=== PATIENT | female | born 1955 | race Caucasian/White ===

== ENCOUNTER → 2020-03-27 15:05 | Outpatient (CLI) | payer OTHER, SELFPAY ==
--- NOTE | ~2020-03-27 | MM_ITS ---
EXAMINATION: MM screening cait BI w martha HISTORY: Screening mammogram TECHNIQUE: Craniocaudal and mediolateral oblique 3-D tomosynthesis images were obtained and synthetic 2-D images were generated. CAD analysis was submitted and interpreted. COMPARISON: 6 01/24/2019, 01/06/2018, 12/09/2016 bilateral digital screening mammogram examinations BREAST PARENCHYMAL COMPOSITION: There are scattered areas of fibroglandular density. FINDINGS: Stable and benign calcifications are again noted primarily in the upper outer quadrant of t he right breast. There is no evidence of suspicious mass, calcification, or architectural distortion to suggest malignancy in either breast. There has been no suspicious interval change. IMPRESSION: 1. No mammographic evidence of malignancy. 2. Recommend routine screening mammography in one year. BI-RADS Category 2: Benign finding(s). Reviewed, dictated and finalized at location B. [facility]
== END ==
PROVIDERS: Visit Provider Nurse Practitioner Obstetrics & Gynecology
DX: Z12.31 Encounter for screening mammogram for malignant neoplasm of breast (principal)
CPT/HCPCS: 77063; 77067

== ENCOUNTER → 2020-11-09 10:09 | Outpatient (CLI) | payer OTHER, SELFPAY ==
--- NOTE | ~2020-11-09 | XR_ITS ---
EXAMINATION: XR femur LT min 2V INDICATION: Left hip pain TECHNIQUE: Two views of the left femur are obtained on four radiographs. COMPARISON: None available FINDINGS: Bone alignment is normal. There is an intramedullary angelique of the femur traversing a healed f racture of the proximal shaft. There is heterotopic ossification overlying the proximal aspect of the angelique. No acute fracture is identified. Calcified atherosclerosis is noted. IMPRESSION: 1. Intramedullary angelique traversing a healed fracture of the left femur without acute osseous abnormalit y identified. Reviewed, dictated and finalized at location A. IMPRESSION: 1. Intramedullary angelique traversing a healed fracture of the left femur without ac juanita osseous abnormality identified.
== END ==
PROVIDERS: PCP Family Medicine Adolescent Medicine; Visit Provider Family Medicine Adolescent Medicine
DX: M25.552 Pain in left hip (principal)
CPT/HCPCS: 73552

== ENCOUNTER → 2020-12-03 12:18 | Outpatient (CLI) | payer OTHER, SELFPAY ==
--- NOTE | ~2020-12-03 | XR_ITS ---
XR lumbar spine 2-3V DATE: 12/03/2020 13:50 INDICATION: Low back pain TECHNIQUE: AP, lateral, coned lateral lumbosacral views COMPARISON: None FINDINGS: Diffuse osteopenia. Mild dextroscoliosis of the lumbar spine. There is mild loss of height and anterior wedging of T11, likely due to old compression fracture. Mild degenerative disc disease of the lumbar spine. No fracture or bone destruction is detected. The included lower thoracic and lumbar pedicles are intact. The sacroiliac joints are normal. Intramedullary device left femur. Heterotopic ossification at the left hip. IMPRESSION: Diffuse osteopenia Mild old compression fracture deformity of T11 Mild dextroscoliosis Reviewed, dictated and finalized at location A.
== END ==
PROVIDERS: PCP Family Medicine Adolescent Medicine; Visit Provider Physician Assistant
DX: M85.88 Other specified disorders of bone density and structure, other site (principal)
CPT/HCPCS: 72100

== ENCOUNTER → 2021-03-01 08:06 | Outpatient (CLI) | payer OTHER, SELFPAY ==
--- NOTE | ~2021-03-01 | CT_ITS ---
EXAMINATION: CT diagnostic chest wo con EXAM DATE: 03/01/2021 08:22 INDICATION: Persistent chest pain below left breast . TECHNIQUE: Spiral CT of the chest without contrast. Axial, coronal and sagittal images of the chest were reviewed. Coronal maximum intensity pixel images of chest reviewed. The dose-length product ( DLP) for this examination was 125.39 mGy-cm. The exposure was tailored according to patient size (au to mA exposure control), and iterative reconstruction (ASIR) was used as additional dose reduction te chnique. There is no prior study for comparison. FINDINGS: There is suspicion of mid esophageal wall thickening, could be phasic, esophagitis or cance r. The lungs are clear. Mild emphysema. There are no pleural or pericardial effusions. Tracheobronc hial tree is patent. There is no mediastinal, hilar or axillary lymphadenopathy. There is no pneu mothorax. Heart normal in size. There is mild coronary arterial calcification, arterial sclerosis . Upper abdomen is unremarkable. There is thoracic spondylosis without osteoblastic or osteolytic lesions identified. There are left 4th, 5th and 6th rib fractures anterolaterally, minimal displacement at the 6th rib. T hese appear subacute, but if patient has acute pain in this location as reported, could have an acute component to the 6th fracture. IMPRESSION: 1. Mid esophageal wall thickening; recommend clinical correlation and further evaluation with esopha gram or endoscopy. 2. Left 6 subacute or acute on subacute fracture anterolaterally. Subacute appearing left 5th, 4th r ib fractures anterolaterally. 3. Mild emphysema. Reviewed, dictated and finalized at location B. [facility]IL[facility] IMPRESSION: 1. Mid esophageal wall thickening; recommend clinical correlation and further evaluation with esophagram or endoscopy. 2. Left 6 subacute or acute on subacute fracture anterolaterally. Subacute doreen earing left 5th, 4th rib fractures anterolaterally. 3. Mild emphysema.
== END ==
PROVIDERS: PCP Family Medicine Adolescent Medicine; Visit Provider Family Medicine Adolescent Medicine
DX: R07.9 Chest pain, unspecified (principal); R93.3 Abnormal findings on diagnostic imaging of other parts of digestive tract; S22.42XA Multiple fractures of ribs, left side, initial encounter for closed fracture; J43.9 Emphysema, unspecified
CPT/HCPCS: 71250

== ENCOUNTER 2021-04-10 00:53 | Day surgery (SDC) | payer OTHER, SELFPAY ==
[2021-03-27 11:54] VITALS: BMI 21.7
[2021-04-10 06:44] VITALS: BP 149/83; PULSE 94; RESP 16; TEMP 36.4; O2SAT 100
[2021-04-10] MEDS: LACTATED RINGERS 1,000 ML 150 ML IV CONT (06:48)
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
[2021-04-10 08:34] VITALS: BP 138/77; PULSE 93; RESP 23; O2SAT 100
[2021-04-10 08:44] VITALS: BP 135/85; PULSE 88; RESP 20; O2SAT 97
[2021-04-10 08:54] VITALS: BP 157/87; PULSE 81; RESP 26; O2SAT 100
--- NOTE | 2021-04-10 10:06 | SUR.PHASEII ---
Spoke with Dr. Gilmore's office, order was recieved for a referral to oncology from Dr. Gilmore. Office staff state they will send information to Dr. Vera's office.
== END 2021-04-10 09:43 | disposition home or self-care (01) ==
PROVIDERS: PCP Family Medicine Adolescent Medicine; Visit Provider Internal Medicine Gastroenterology
PROC: 0DJ08ZZ Inspection of Upper Intestinal Tract, Via Natural or Artificial Opening Endoscopic (ICD-10-PCS; CPT 43235; principal; 2021-04-10 08:00)
DX: K22.70 Barrett's esophagus without dysplasia (principal); K22.10 Ulcer of esophagus without bleeding; K21.00 Gastro-esophageal reflux disease with esophagitis, without bleeding; K44.9 Diaphragmatic hernia without obstruction or gangrene; I10 Essential (primary) hypertension
CPT/HCPCS: 43239; 88305; J2704; J7120

== ENCOUNTER → 2021-05-20 15:41 | Outpatient (CLI) | payer OTHER, SELFPAY ==
--- NOTE | ~2021-05-20 | MM_ITS ---
EXAMINATION: MM screening cait BI w martha HISTORY: Screening TECHNIQUE: Craniocaudal and mediolateral oblique 3-D tomosynthesis images were obtained and synthetic 2-D images were generated. CAD analysis was submitted and interpreted. COMPARISON: Comparison to multiple prior studies sequentially, with oldest reviewed study dated 12/07. BREAST PARENCHYMAL COMPOSITION: Breast composed of scattered areas of fibroglandular density. FINDINGS: Stable benign-appearing right breast calcifications. There is no evidence of suspicious mas s, calcification, or architectural distortion to suggest malignancy in either breast. There has been no suspicious interval change. IMPRESSION: 1. No mammographic evidence of malignancy. 2. Recommend routine screening mammography in one year. BI-RADS Category 2: Benign finding(s). Reviewed, dictated and finalized at location A. [facility]
== END ==
PROVIDERS: Visit Provider Nurse Practitioner Obstetrics & Gynecology
DX: Z12.31 Encounter for screening mammogram for malignant neoplasm of breast (principal)
CPT/HCPCS: 77063; 77067

== ENCOUNTER 2021-05-21 00:17 | Day surgery (SDC) | payer OTHER, SELFPAY ==
[2021-05-08 10:33] VITALS: BMI 22.1
[2021-05-21 07:21] VITALS: BP 147/86; PULSE 90; RESP 20; TEMP 36.1; O2SAT 100
[2021-05-21] MEDS: LACTATED RINGERS 1,000 ML 150 ML IV CONT (07:33)
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
[2021-05-21 08:37] VITALS: BP 130/75; PULSE 84; RESP 20; O2SAT 100
[2021-05-21 08:47] VITALS: BP 133/70; PULSE 72; RESP 16; O2SAT 100
[2021-05-21 08:57] VITALS: BP 152/75; PULSE 76; RESP 16; O2SAT 100
== END 2021-05-21 09:07 | disposition home or self-care (01) ==
PROVIDERS: PCP Family Medicine Adolescent Medicine; Visit Provider Internal Medicine Gastroenterology
PROC: 0DJ08ZZ Inspection of Upper Intestinal Tract, Via Natural or Artificial Opening Endoscopic (ICD-10-PCS; CPT 43235; principal; 2021-05-21 08:30)
DX: K21.00 Gastro-esophageal reflux disease with esophagitis, without bleeding (principal); K44.9 Diaphragmatic hernia without obstruction or gangrene; K22.70 Barrett's esophagus without dysplasia; I10 Essential (primary) hypertension
CPT/HCPCS: 43239; 88305; J2704; J7120

== ENCOUNTER → 2021-05-23 12:43 | Outpatient (CLI) | payer OTHER, SELFPAY ==
--- NOTE | ~2021-05-23 | DEXA_ITS ---
Bone Density Report Name: ARACELIS SIMEON Age: 65 Sex: Female Ethnicity: White Date of : 1955 Indication: osteopenia; monitoring treatment; parental hip fracture; height loss; prior fracture; postmenopausal Referring Provider: Rianna, Gabriela Xavier Study: Bone densitometry was performed. Exam Date: May 23, 2021 Accession number: [id number] Bone Density: Region BMD T-score Z-score Classification AP Spine (L1, L2, L3) 0.915 -0.9 0.8 Normal Femoral Neck (Right) 0.597 -2.3 -0.8 Osteopenia Total Hip (Right) 0.715 -1.9 -0.7 Osteopenia World Health Organization criteria for BMD impression classify patients as: Normal (T-score at or above -1.0), Osteopenia (T-score between -1.0 and -2.5), or Osteoporosis (T-score at or below -2.5). 10-year Fracture Risk: FRAX not reported because: Prior hip or vertebral fracture Treated for osteoporosis Previous Exams: Region Exam Age BMD T-score BMD Change BMD Change Date g/cm2 vs Baseline vs Previous AP Spine(L1, L2, L3) 05/23/2021 65 0.915 -0.9 0.106* -0.018 01/24/2019 63 0.933 -0.8 0.123* 0.028* 12/26/2016 61 0.905 -1.0 0.096* 0.034* 12/02/2014 59 0.871 -1.3 0.061* 0.007 11/09/2012 57 0.864 -1.4 0.054* 0.034* 10/29/2010 55 0.830 -1.7 0.020 -0.024* 05/05/2008 52 0.854 -1.5 0.044* 0.044* 05/03/2007 51 0.810 -1.9 Total Hip(Right) 05/23/2021 65 0.715 -1.9 0.043* 0.012 01/24/2019 63 0.703 -2.0 0.031* 0.001 12/26/2016 61 0.701 -2.0 0.030* -0.025 12/02/2014 59 0.726 -1.8 0.055* 0.039* 11/09/2012 57 0.687 -2.1 0.015 0.022 10/29/2010 55 0.664 -2.3 -0.007 -0.043* 05/05/2008 52 0.708 -1.9 0.036* 0.036* 05/03/2007 51 0.671 -2.2 *Denotes significance at 95% confidence level, LSC for AP Spine = 0.022 g/cm2, LSC for Total Hip = 0.027 g/cm2 Clinical Information Provided by Patient: Have had a previous hip or vertebral fracture Has had a low trauma fracture Parent has had a hip fracture Is being treated for osteoporosis Has used the following medications: Actonel (i.e. risedronate), Evista (i.e. raloxifene), Vitamin D, MTV Patient maximum height was 62.0 Menopause Age: 49 No regular weight bearing exercise Drinks caffeinated beverages Onset of menses at age 17 Number of children 2
== END ==
PROVIDERS: PCP Family Medicine Adolescent Medicine; Visit Provider Nurse Practitioner Obstetrics & Gynecology
DX: Z78.0 Asymptomatic menopausal state (principal); M85.89 Other specified disorders of bone density and structure, multiple sites
CPT/HCPCS: 77080

== ENCOUNTER → 2021-11-04 10:40 | Outpatient (CLI) | payer OTHER, SELFPAY ==
--- NOTE | ~2021-11-04 | XR_ITS ---
XR knee LT 3V 11/04/2021 10:52 Indication: Knee pain Procedure: 3 views left knee Comparison: 11/09/2020 Findings: Mild patellofemoral compartment osteoarthritis. There is an intramedullary angelique partially vi sualized in the distal femur. There is mild degenerative change of the medial compartment. No acute f racture or traumatic malalignment. No significant joint effusion. Impression: 1: Mild osteoarthritis of the left knee. Reviewed, dictated and finalized at location A. Impression: 1: Mild osteoarthritis of the left knee.
== END ==
PROVIDERS: PCP Family Medicine Adolescent Medicine; Visit Provider Family Medicine Adolescent Medicine
DX: M25.562 Pain in left knee (principal); M17.12 Unilateral primary osteoarthritis, left knee
CPT/HCPCS: 73562

== ENCOUNTER → 2022-09-04 10:47 | Outpatient (CLI) | payer OTHER, SELFPAY ==
--- NOTE | ~2022-09-04 | MM_ITS ---
EXAMINATION: MM screening cait BI w martha HISTORY: Screening mammogram, family history of breast cancer in her sister. TECHNIQUE: Craniocaudal and mediolateral oblique 3-D tomosynthesis images were obtained and synthetic 2-D images were generated. CAD analysis was submitted and interpreted. COMPARISON: 05/20/2021, 03/27/2020, 01/14/2019 BREAST PARENCHYMAL COMPOSITION: There are scattered areas of fibroglandular density. FINDINGS: Scattered benign-appearing calcifications are present. No suspicious mass, calcification, o r architectural distortion are identified in either breast to suggest malignancy. There has been no s uspicious interval change. IMPRESSION: 1. No mammographic evidence of malignancy. 2. Recommend routine screening mammography in one year. BI-RADS Category 2: Benign finding(s). Reviewed, dictated and finalized at location A.
== END ==
PROVIDERS: PCP Family Medicine Adolescent Medicine; Visit Provider Nurse Practitioner Obstetrics & Gynecology
DX: Z12.31 Encounter for screening mammogram for malignant neoplasm of breast (principal)
CPT/HCPCS: 77063; 77067

== ENCOUNTER 2023-09-23 07:00 | Outpatient (NON) | payer OTHER, SELFPAY | END 2023-09-23 07:01 | disposition home or self-care (01) | PROVIDERS: PCP Family Medicine Adolescent Medicine; Visit Provider Internal Medicine Gastroenterology | DX: K22.70 Barrett's esophagus without dysplasia (principal) | CPT/HCPCS: 88305 ==

== ENCOUNTER 2023-09-23 07:18 | Day surgery (SDC) | payer OTHER, SELFPAY ==
[2023-09-02 07:00] VITALS: BMI 23.3
[2023-09-11 14:57] VITALS: BMI 21.5
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
[2023-09-23 07:56] VITALS: BP 150/73; PULSE 75; RESP 18; TEMP 36.5; O2SAT 100; BMI 21.2
[2023-09-23] MEDS: LACTATED RINGERS 1,000 ML 150 ML IV CONT (08:01)
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
[2023-09-23 09:27] VITALS: BP 127/62; PULSE 75; RESP 16; O2SAT 100
[2023-09-23 09:37] VITALS: BP 102/88; PULSE 88; RESP 18; O2SAT 100
[2023-09-23 09:47] VITALS: BP 136/71; PULSE 74; RESP 16; O2SAT 100
--- NOTE | 2023-09-23 10:21 | WPDANESPN ---
Anes - Prog Note Post-Op Date/Time: 09/23/23 10:21 Cardiovascular status: normal Respiratory status: normal Airway patency: baseline Mental status: baseline Vital Signs: Last Vital Signs Temp 36.5 C 09/23/23 07:56 Pulse 74 09/23/23 09:47 Resp 16 09/23/23 09:47 BP 136/71 09/23/23 09:47 Pulse Ox 100 09/23/23 09:47 O2 Del Method Room Air 09/23/23 09:47 Pain Score (VAS): 0/10 I/O: Intake & Output 09/22/23 09/23/23 09/23/23 23:59 07:59 15:59 Intake Total 350 Balance 350 Patient Feedback: Patient satisfied with anesthetic care.
== END 2023-09-23 10:00 | disposition home or self-care (01) ==
PROVIDERS: PCP Family Medicine Adolescent Medicine; Visit Provider Internal Medicine Gastroenterology
PROC: 0DJ08ZZ Inspection of Upper Intestinal Tract, Via Natural or Artificial Opening Endoscopic (ICD-10-PCS; CPT 43235; principal; 2023-09-23 09:00)
DX: K22.70 Barrett's esophagus without dysplasia (principal); K21.9 Gastro-esophageal reflux disease without esophagitis
CPT/HCPCS: 43239

== ENCOUNTER 2024-01-14 15:25 | Outpatient (CLI) | payer OTHER, SELFPAY ==
--- NOTE | ~2024-01-14 | MM_ITS ---
EXAMINATION: MM screening cait BI w martha HISTORY: Screening TECHNIQUE: Craniocaudal and mediolateral oblique 3-D tomosynthesis images were obtained and synthetic 2-D images were generated. CAD analysis was submitted and interpreted. COMPARISON: Comparison to multiple prior studies sequentially, with oldest reviewed study dated 12/09. BREAST PARENCHYMAL COMPOSITION: Not dense: There are scattered areas of fibroglandular density. FINDINGS: There is no evidence of suspicious mass, calcification, or architectural distortion to sugg est malignancy in either breast. There has been no suspicious interval change. IMPRESSION: 1. No mammographic evidence of malignancy. 2. Recommend routine screening mammography in one year. BI-RADS Category 1: Negative Reviewed, dictated and finalized at location B.
== END 2024-01-14 15:26 | disposition home or self-care (01) ==
PROVIDERS: PCP Family Medicine Adolescent Medicine; Visit Provider Obstetrics & Gynecology
DX: Z12.31 Encounter for screening mammogram for malignant neoplasm of breast (principal)
CPT/HCPCS: 77063; 77067

== ENCOUNTER 2024-07-21 09:10 | Outpatient (CLI) | payer OTHER, SELFPAY ==
--- NOTE | ~2024-07-21 | DEXA_ITS ---
Bone Density Report Name: ARACELIS SIMEON Age: 68 Sex: Female Ethnicity: White Date of : 1955 Indication: postmenopausal; screening for osteoporosis; parental hip fracture; height loss; Referring Provider: IZABELLA, HARPREET [place] Study: Bone densitometry was performed. Exam Date: July 21, 2024 Accession number: [id number] Bone Density: Region BMD T-score Z-score Classification AP Spine(L1-L4) 0.911 -1.2 0.7 Osteopenia Femoral Neck (Right) 0.535 -2.8 -1.2 Osteoporosis Total Hip (Right) 0.709 -1.9 -0.5 Osteopenia World Health Organization criteria for BMD impression classify patients as: Normal (T-score at or above -1.0), Osteopenia (T-score between -1.0 and -2.5), or Osteoporosis (T-score at or below -2.5). 10-year Fracture Risk: FRAX not reported because: Some T-score for Spine Total or Hip Total or Femoral Neck at or below -2.5 Treated for osteoporosis Clinical Information Provided by Patient: Parent has had a hip fracture Is being treated for osteoporosis Has used the following medications: Evista (i.e. raloxifene), Calcium Patient maximum height was 61 Menopause Age: 49 No regular weight bearing exercise Does not regularly consume dairy products Drinks caffeinated beverages Onset of menses at age 16 Number of children 2 Impression: The patient has osteoporosis, based on the Right Femoral Neck T-score. The patient has risk factors, including: parental hip fracture. Discussion: It is important to ask patients whether they are taking their medications and to encourage continued and appropriate compliance with their osteoporosis therapies to reduce fracture risk. It is also important to review their risk factors and encourage appropriate calcium and vitamin D intakes, exercise, fall prevention and other lifestyle measures. Follow-Up: Consider a repeat BMD and Vertebral Fracture Assessment (VFA) exam in 2 years or sooner if medically necessary, to reassess this patient's status. Reported by: JUAN on 07/21/2024 10:07:00 AM. Reviewed, dictated and finalized at location ADonell CALDERON
--- OUTSIDE RECORDS SUMMARY | 2024-07-21 09:26 | XMS_ITS | Continuity of Care Document ---
Author Organization [facility] Address [address] [place] [address] Phone Care Team Providers Care Game Developer Name Role [facility] Unavailable Unavail able Wendy Morales Unavailable Unavailable Advance Directives Directive Yes / No Effective Date File Name No Information Encounters Encounter Description Practice Location Reason(s) For Visit Diagnoses Date Provider Providers Copied on Encounter [facility], [address], [place], [place], [id number], [place] tel:[phone] [facility] No Information [address] [facility] [facility], [facility] [address], [place], [id number] , [place]. tel:[phone] Referring Provider: [place], [address], [address]. tel:[phone] g Provider: Wendy Morales, [address] [place] [address], [place], [address]. tel:[phone] 1900 Family History Family Member Type Diagnosis Age At Onset No Information Payers Payer name Insurance type Covered green party ID Authoriza tion(s) No Information Social History Type Description Quantity Date Captured Comments Sex Female Smoking Status No Information Chief Complaint And Reason For Visit No Information Reason For Referral Reason For Referral No Information History Of Present Illness Encounter Date Complaint History Of Prese nt Illness No Information Functional Status Date Functional Assessmen t No Information Instructions Date Instruction Additional Infor mation No Information Assessments Type Assessment Date No Information Patient Care Teams Name Effective Dates (start - stop) Status Members No Information
--- OUTSIDE RECORDS SUMMARY | 2024-07-21 09:26 | XMS_ITS | Data Portability ---
Author Organization [facility] [place] Address [address] [place] [address] [place] [address] Care Team Providers Care Route Sales Associate Name Role Phone KATHY BAKER Primary Care Provider Assessment Encounter Date Assessment Date Assessment LastModified by Organization Details LastModified Time 02/14/2020 02/14/2020 Annual gynecological exam performed. Patient will come back in a year unless there are new symptoms. [email or web address] Not available 02/14/2020 10:45:14 02/21/2021 02/21/2021 Annual gynecological exam performed. Patient will come back in a year unless there are new symptoms. Not available 02/20/2021 13:32:13 06/16/2022 06/16/2022 Annual gynecological exam performed. Patient will come back in a year unless there are new symptoms. Not available 06/16/2022 09:26:41 02/26/2024 02/26/2024 Annual gynecological exam performed. Patient will come back in a year unless there are new symptoms. [email or web address] Not available 02/22/2024 15:07:48 Plan of Treatment Reminders Order Date Submit Date Provider Last Modified By Organization Details Last Modified Time Details Appointments None recorded. Lab None recorded. Referral None recorded. Procedures None recorded. Surgeries None recorded. Imaging MAMMO, screening, digital, bilateral 2023 [facility], [address], [place], [address], 04:08:36 DEXA, axial skeleton + vertebral fracture assessment 2023 [facility], [address], [place], [address], 5 04:03:05 MAMMO, screening, bilateral 2022 023 [facility], [address], [place], [address], 3 05:01:24 MAMMO, screening, digital, bilateral [email or web address] [place] [address], [address], [place], [address], 2 13:42:19 DEXA, axial skeleton + vertebral fracture assessment 2020 021 [facility], [address], [place], [address], 2 17:34:26 Medication Orders raloxifene 60 mg tablet 2022 023 RYAN [facility], [address] [place] [address], [address], 3 09:47:58 raloxifene 60 mg tablet 2019 020 INTERFACE [facility], [address] [place] [address], [address], 0 11:13:47 risedronat e 150 mg tablet 2019 020 layran [facility], [address] [place] [address], [id number], 2 17:31:33 Patient TargetsNo targets recorded. Patient Instructions Encounter Date Encounter Id Patient Instructions Last Modified By Organization Details Last Modified Time 02/14/2020 [id number] [email or web address] Not available 11:00:12 Reason for Referral None Reported. 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 Atrop hic cell emily dotson. Elect nadeem boo nataliya d by So Otto, CT on 02/28 at 7:12 AM ----- ----- ----- ----- ----- ----- ----- ----- ----- ----- ----- ----- ----- ----- ----- ----- ----- ---- HPV RESUL TS: HPV mRNA E6/E7 : No HPV mRNA Detec jose NOTE: This high risk HPV mRNA assay detec ts fourt een high- risk HPV types (16, 18, 31, 33, 35, 39, 45, 51, 52, 56, 58, 59, 66, 68) witho ut diffe renti ation . COMME NT: Note: This speci men was revie wed by a Cytot echno logis t and/o r Patho logis t (as indic ated in this repor t) after evalu ation using the Thinp rep Imagi ng Syste m. CLINI ROSANNA INFOR MATIO N: Menst rual Statu s: LMP (if appli cable ): Clini rosanna Histo ry/Pr eviou s Pap: Type of Neopl zen (if appli cable ): Signi fican t Clini rosanna Findi ngs: Other Histo ry: Hormo kane (if appli cable ): PAP EDUCA MORALES L NOTE: The Pap Test is a scree verónica test with an inher ent false negat etienne rate. Liqui d-bas e sampl ing may decre ase, but will not elimi carina, false negat etienne resul ts. A negat etienne resul t does not precl ude the prese nce and/o r devel opmen t of disea se, since the prese nce of abnor mal cells in the sampl e depen ds on the locat ion of the lesio n and sampl ing techn ique. Carrol nued regul ar scree verónica is the best metho d of cance r preve ntion . If repor jose cytol ogic findi ng do not corre late with physi rosanna and/o r histo rical findi ngs, furth er inves tigat ion is recom radha d, as clini mary warra nted. Not Available [facility] (Lab) [address], [place], [address], 02/28/2021 08:15:11 06/17/19 23 06/16/2022 urina lysis , dipst ick Leukocytes trace Not Available Priti olivares [address], [place], [address], 06/16/2022 10:03:07 06/17/19 23 06/16/2022 urina lysis , dipst ick Nitrite neg Not Available [facility] [address], [place], [address], 06/16/2022 10:03:07 06/17/19 23 06/16/2022 urina lysis , dipst ick Urobilinogen neg Not Available Ryan gilman [address], [place], [address], 06/16/2022 10:03:07 06/17/19 23 06/16/2022 urina lysis , dipst ick Protein trace Not Available [facility] [address], [place], [address], 06/16/2022 10:03:07 06/17/19 23 06/16/2022 urina lysis , dipst ick pH 5 Not Available [facility] [address], [place], [address], 06/16/2022 10:03:07 06/17/19 23 06/16/2022 urina lysis , dipst ick Blood + Not Available [facility] [address], [place], [address], 06/16/2022 10:03:07 06/17/19 23 06/16/2022 urina lysis , dipst ick Specific Echo 1.005 Not Available [facility] [address], [place], [address], 06/16/2022 10:03:07 06/17/19 23 06/16/2022 urina lysis , dipst ick Ketone neg Not Available [facility] [address], [place], [address], 06/16/2022 10:03:07 06/17/19 23 06/16/2022 urina lysis , dipst ick Bilirubin neg Not Available [facility] [address], [place], [address], 06/16/2022 10:03:07 06/17/19 23 06/16/2022 urina lysis , dipst ick Glucose neg Not Available [facility] [address], [place], [address], 06/16/2022 10:03:07 06/17/19 23 06/16/2022 urina lysis , dipst ick Appearance clear Not Available [facility] [address], [place], [address], 06/16/2022 10:03:07 06/17/19 23 06/16/2022 urina lysis , dipst ick Color yellow Not Available [facility] [address], [place], [address], 06/16/2022 10:03:07 03/28/20 20 03/27/2020 MAMMO , scree verónica, bilat eral No observ ation record ed. [facility] [address], [place], [address], 03/28/2020 14:05:28 05/20/19 22 05/20/2021 MAMMO , scree verónica, bilat eral No observ ation record ed. [facility] [address], [place], [address], 05/31/2021 14:59:22 05/31/19 22 05/23/2021 DEXA, axial skele ton + verte bral fract ure asses sment No observ ation record ed. [facility] [address], [place], [address], 06/13/2021 17:33:40 01/15/20 24 01/14/2024 MAMMO , scree verónica, bilat eral No observ ation record ed. [facility] [address], [place], [address], 02/01/2024 04:04:29 Result Notes None recorded. Problems Name Problem SNOMED Code Status Onset Date Resolution Date Notes Provider Name and Address Organization Details Recorded Time Speciali zed medical examinat ion Completed 201402/20/2021 Routine gynecolog ical examinati on;Practi ce ID: 0001 Loretta Velázquez null, [facility] 13:23:15 Screenin g for malignan t neoplasm of cervix Completed 201402/20/2021 SCREEN MAL NEOP-CERV IX;Practi ce ID: 0001 Loretta Velázquez [facility] 13:22:58 Screenin g for malignan t neoplasm of rectum Completed 201402/20/2021 Screening for malignant neoplasms of the rectum;Pr actice ID: 0001 Loretta Velázquez [facility] 13:23:01 Localize d osteopor osis - [place] [id number] Completed 201402/20/2021 Localized osteoporo sis [Lequesne ];Practic e ID: 0001 Loretta Velázquez [facility] 13:22:[address] Concept Completed 201502/20/2021 Encntr for general adult medical exam w/o abnormal findings; Practice ID: 0001 Loretta Velázquez [facility] 13:23:[address] Concept Completed 201502/20/2021 Encntr for obstetrics gyn physician exam (general) (routine) w/o abn findings; Practice ID: 0001 Loretta Velázquez [facility] 13:23:12 Evaluati on finding Completed 201602/20/2021 Hematuria , unspecifi ed;Practi ce ID: 0001 Loretta Velázquez [facility] 13:22:[address] Concept Completed 201602/20/2021 Encounter for general adult medical exam w abnormal findings; Practice ID: 0001 Loretta Velázquez [facility] 13:22:56 Blood leukocyt e number above referenc e range [id number] Completed 201802/20/2021 Elevated white blood cell count, unspecifi ed;Practi ce ID: 0001 Loretta Velázquez [facility] 13:22:46 Microsco pic hematuri a [id number] Completed 201102/20/2021 MICROSCOP IC HEMATURIA ;Recorded Elsewhere : No Locati on: [facility] So urce: EHR Chron ic: N Practic e ID: 0001 Bill able Time: 08:15:00 AM Loretta Velázquez [facility] 13:22:51 Adult health examinat ion Completed 201402/20/2021 ROUTINE MEDICAL EXAM;Kishore rded Elsewhere : No Locati on: [facility] So urce: EHR Chron ic: N Practic e ID: 0001 Bill able Time: 09:00:00 AM Loretta Velázquez [facility] 13:22:35 Osteopor osis [id number] Completed 201202/20/2021 Osteoporo sis;Recor ded Elsewhere : No Locati on: [facility] So urce: EHR Chron ic: N Practic e ID: 0001 Bill able Time: 10:45:00 AM Loretta Velázquez [facility] 13:22:53 Disorder of bone and articula r cartilag e [id number] Completed 201002/20/2021 Osteopeni a;Practic e ID: 0001 Loretta Velázquez [facility] 13:22:38 Problem Notes None recorded. Procedures Surgical History Date Name Laterality Status Provider Name and Address Organization Details Recorded Time 4 Date of Last Mammogram completed [facility] 02/22/2024 15:09:29 4 completed Lorettasue King [facility] 02/26/2024 10:18:48 3 Date of Last Pap Smear completed [facility] 02/22/2024 15:08:44 9 completed [facility] 02/21/2021 10:00:15 procedure on lower leg completed [facility] 02/20/2021 13:29:25 procedure on oral cavity completed [facility] 02/20/2021 13:29:35 procedure on face completed [facility] 02/20/2021 13:30:40 endoscopy completed [facility] 02/26/2024 10:19:44 Colonoscopy completed Carmen Stanley [facility] 02/14/2020 10:35:45 Imaging Results Imaging Date Name Status LastModified by Organiz ation Details LastModified Time 03/27/2020 MAMMO, screening, bilateral active [facility] [address], [place], [address], 03/28/2020 14:05:28 05/20/2021 MAMMO, screening, bilateral completed [facility] [address], [place], [address], 05/31/2021 14:59:22 05/23/2021 DEXA, axial skeleton + vertebral fracture assessment completed [facility] [address], [place], [address], 06/13/2021 17:33:40 01/14/2024 MAMMO, screening, bilateral active [facility] [address], [place], [address], 02/01/2024 04:04:29 Procedure Notes None recorded. Medical Equipment None Reported. Allergies No known drug allergies Medications Name Sig Start Date Stop Date Status Note LastModified by Organization Details LastModified Time prednison e 10 mg tablet TAKE 6 TABLETS BY MOUTH ONCE DAILY FOR 4 DAYS THEN 5 ONCE DAILY FOR 4 DAYS THEN 4 ONCE DAILY FOR 4 DAYS THEN 3 ONCE DAILY FOR 4 DAYS THEN 2 ONCE DAILY FOR 4 DAYS THEN 1 ONCE DAILY FOR 4 DAYS 06/16 completed Not Available Not Available Not Available atorvasta tin 20 mg tablet TAKE 1 TABLET BY MOUTH ONCE DAILY active Not Available Not Available No t Available lisinopri l 20 mg-hydroc hlorothia zide 12.5 mg tablet TAKE 1 TABLET BY MOUTH ONCE DAILY active Not Available Not Available No t Available meloxicam 15 mg tablet TAKE 1 TABLET BY MOUTH ONCE DAILY FOR INFLAMMA TION 02/13 completed Not Available Not Available Not Available acetamino phen 300 mg-codein e 30 mg tablet TAKE 1 TABLET BY MOUTH EVERY 4 TO 6 HOURS NEEDED FOR PAIN 02/13 completed Not Available Not Available Not Available amoxicill in 500 mg tablet take 1 tablet by oral route 3 times every day 01/24 completed Prescrib ed Elsewher e: No Locat ion: [facility] odify By: alana silva DateTime : 11/28/19 09:41:05 AM Not Available Not Available Not Available Actonel 5 mg tablet take 1 tablet by oral route once monthly in the morning, at least 30 min before first food, beverage , or medicati on of day 02/20 completed Prescrib ed Elsewher e: Yes Loca tion: [facility] odify By: adriane smith DateTime : 11/16/19 16 08:30:00 AM Not Available Not Available Not Available cephalexi n 500 mg capsule TAKE 2 CAPSULES BY MOUTH NOW THEN 1 CAPSULE BY MOUTH THREE TIMES DAILY UNTIL GONE 02/13 completed Not Available Not Available Not Available Cipro 500 mg tablet take 1 tablet by oral route every 12 hours 01/29 completed Prescrib ed Elsewher e: No Locat ion: [facility] odify By: ezio silva DateTime : 01/30/20 09:30:54 AM Not Available Not Available Not Available ropinirol e 0.5 mg tablet TAKE 1 TABLET BY MOUTH ONCE DAILY AT BEDTIME active Not Available Not Available No t Available omeprazol e 20 mg capsule,d elayed release TAKE 1 CAPSULE BY MOUTH ONCE DAILY active Not Available Not Available No t Available raloxifen e 60 mg tablet TAKE 1 TABLET DAILY 2023 active Not Available Not Available Not Avai lable diclofena c sodium 75 mg tablet,de layed release TAKE 1 TABLET BY MOUTH TWICE DAILY active Not Available Not Available No t Available Bactrim DS 800 mg-160 mg tablet take 1 tablet by oral route every 12 hours 01/24 completed Prescrib ed Elsewher e: No Locat ion: [facility] odify By: [email or web address] z Encoun ter DateTime : 12/18/19 10:13:22 AM Not Available Not Available Not Available risedrona te 150 mg tablet TAKE 1 TABLET ONCE MONTHLY 06/13 completed Not Available Not Available Not Available Shingrix (PF) 50 mcg/0.5 mL intramusc ular suspensio n, kit PHARMACI ST ADMINIST ERED IMMUNIZA TION ADMINIST ERED AT TIME OF DISPENSI NG 02/20 completed Not Available Not Available Not Available Flublok Quad (PF) 180 mcg (45 mcg x 4)/0.5 mL IM syringe PHARMACI ST ADMINIST ERED IMMUNIZA TION ADMINIST ERED AT TIME OF DISPENSI NG 02/20 completed Not Available Not Available Not Available BinaxNOW COVID-19 Ag Self Test kit USE MANUFACT URER GUIDANCE ON PACKAGE 06/16 completed Not Available Not Available Not Available Vitals Date Recorded Body height Body mass index (BMI) Body weight Provider Name and Address Organization Details Last Updated DateTime 02/21/2021 153.67 cm 21.9 kg/m2 52677.53 g Loretta Velázquez [facility] 02/21/2021 10:16:02 Date Recorded Systolic blood pressure Diastolic blood pressure Provider Name and Address Organization Details Last Updated DateTime 02/21/2021 128 mm[Hg] 78 mm[Hg] Gabriela Blanca, [facility]- [address], [place], [address], [place] - [facility] 02/21/2021 10:29:35 Date Recorded Body weight Provider Name an d Address Organization Details Last Updated DateTime 06/16/2022 83889.53 g Loretta King [facility] 06/16/2022 09:26:48 Date Recorded Systolic blood pressure Diastolic blood pressure Provider Name and Address Organization Details Last Updated DateTime 06/16/2022 137 mm[Hg] 80 mm[Hg] Gabriela Blanca, [facility]- [address], [place], [address], [facility] 06/16/2022 09:48:53 Date Recorded Body weight Systolic blood pressure Diastolic blood pressure Provider Name and Address Organization Details Last Updated DateTime 02/26/2024 03616.2 g 137 mm[Hg] 79 mm[Hg] Loretta King [facility] 02/26/2024 10:18:39 Date Recorded Body height Body mass index (BMI) Body weight Systolic blood pressure Diastolic blood pressure Provider Name and Address Organization Details Last Updated DateTime 02/14/2020 152.4 cm 23.2 kg/m2 33901.49 g 140 mm[Hg] 78 mm[Hg] Carmen Stanley [facility] 10:45:59 Social History Question Answer Notes LastModified by Organizat ion Details LastModified Time Tobacco Smoking Status Never Smoker Carmen Stanley [facility] 02/14/2020 10:47:36 Do You Have An Advance Directive? No Information not available 02/26/2024 What Is Your Level Of Alcohol Consumption? Occasional Information not available 02/20/2021 Are You Blind Or Do You Have Difficulty Seeing? No Information not available 02/20/2021 What Is Your Level Of Caffeine Consumption? Occasional Information not available 02/20/2021 How Much Tobacco Do You Chew? None Information not available 02/26/2024 In The 14 Days Before Symptom Onset, Have You Had Close Contact With A Laboratory-confir med COVID-19 While That Case Was Ill? No Information not available 02/26/2024 In The 14 Days Before Symptom Onset, Have You Had Close Contact With A Person Who Is Under Investigation For COVID-19 While That Person Was Ill? No Information not available 02/26/2024 Have You Been To An Area Known To Be High Risk For COVID-19? No Information not available 02/26/2024 Are You Deaf Or Do You Have Serious Difficulty Hearing? No Information not available 02/20/2021 What Type Of Diet Are You Following? REGULAR Information not available 02/20/2021 What Is The Highest Grade Or Level Of School You Have Completed Or The Highest Degree You Have Received? 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 Yes Information not available 02/26/2024 Do You Use Your Seat Belt Or Car Seat Routinely? Yes Information not available 02/20/2021 Do You Have Smoke And Carbon Monoxide Detectors In Your Home? Yes Information not available 02/20/2021 How Much Tobacco Do You Smoke? No Information not available 02/26/2024 Do You Feel Stressed (tense, Restless, Nervous, Or Anxious, Or Unable To Sleep At Night)? [id number] Information not available 02/20/2021 Do You Use Any Illicit Or Recreational Drugs? No Information not available 02/20/2021 Do You Use Sunscreen Routinely? No Information not available 02/26/2024 Have You Used IV Drugs? No Information not available 02/26/2024 Sex: Unknown Functional Status Question Answer Note LastModified by Organizat ion Details LastModified Time Do you have difficulty walking or climbing stairs? No Information not available 06/16/2022 Are you able to walk? YESWOREST Information not available 02/20/2021 Are you able to care for yourself? Yes Information not available 06/16/2022 Do you have difficulty dressing or bathing? No Information not available 06/16/2022 What is your exercise level? Occasional Information not available 02/20/2021 Mental Status None recorded. Family History Relationship Description Onset Age of this Age Resolved Age Notes LastModified by Organization Details LastModified Time Father Hypertensive disorder [email or web address] Not available 2019 10:23:14 Father Cerebrovascu lar accident [email or web address] Not available 06/2019 10:23:27 Sister Hypertensive disorder [email or web address] Not available 2019 10:23:14 Paternal Grandmother Malignant neoplasm of skin [email or web address] Not available 2023 09:58:50 Paternal Grandmother Atherosclero sis [email or web address] Not available 2023 09:58:50 Medical History Condition Response Other Y Hypertension Y High Cholesterol Y Gynecological History Statement/Question Response Date of Last Mammogram 01/14/2024 STIs/STDs N Was last menstrual period normal Y HPV Vaccine N 12/07/2018 Current Control Method Menopause Age at First Child 26 If Post Menopausal, Age at Menopause 49 Sexually Active? Y Menses Monthly N Age of first menstrual cycle 17 Date of Last Pap Smear 06/16/2022 Sexual Problems? N LMP Unknown 11/28/2023 Obstetrics History GPAL:G 2 P 0 0 0 2 Type Value Living 2 Total 2 Past Encounters Encounter ID Performer Location Encounter Start Date Encounter Closed Date Diagnosis/Indication Diagnosis SNOMED-CT Code Diagnosis ICD10 Code Diagnosis Note [id number] Gabriela Blanca [facility] [address] [address] 02/14/2020 10:34:52 02/14/2020 11:19:36 Gynecologic examination 44326802 Z01.419 Take Calcium with Vitamin D 12-1500mg daily. Do monthly self breast exams. It is advised to get annual flu shot in the fall and she could obtain at [facility] or [facility] care clinic. If you haven't received the Tdap vaccine in the last 10 years you should obtain one as well. Have mammogram yearly, bone density every 2-3 years and colonoscop y every 5-10 years depending on findings and history. Engage in daily exercise of low impact aerobic exercise 45-60 minutes 4-5 times weekly. Avoid tobacco and illicit drugs as well as using moderation with alcohol intake less than 1-2 8 oz beverages daily. This lifestyle behavior pattern will lead to less health conditions and longer life span. If BMI greater than 25 weight watchers or dietary consult advised. Questions have been answered. Patient appears to understand instructio ns, but if you have any further questions call or respond to this email MonogaSensorly ip x 40yrs Pap hx wnl Last pap/hpv 2018 wnl Defer pap this year & possibly due last pap next year per asscp unless otherwise indicated. Mammo order given Dexa 2018 all points osteopenia ; on medication . We RF medication this year & will evaluate this regimen after Dexa done next year 2020. See's PCP regularly. Postmenopa usal osteopenia [id number] M85.80 Dexa due 2020 Needs to consider D/C biphosphon ate instead of doing both SERM & biphosphon ate. Also Biphosphon ate has max of 5yrs use. Can discuss next year after bone scan evaluation . [id number] Gabriela Blanca , [facility] [address] [address] 02/21/2021 09:53:20 02/21/2021 10:42:15 Gynecologic examination 98238472 Z01.419 Take Calcium with Vitamin D 12-1500mg daily. Do monthly self breast exams. It is advised to get annual flu shot in the fall and she could obtain at [facility] or [facility] care clinic. If you haven't received the Tdap vaccine in the last 10 years you should obtain one as well. Have mammogram yearly, bone density every 2-3 years and colonoscop y every 5-10 years depending on findings and history. Engage in daily exercise of low impact aerobic exercise 45-60 minutes 4-5 times weekly. Avoid tobacco and illicit drugs as well as using moderation with alcohol intake less than 1-2 8 oz beverages daily. This lifestyle behavior pattern will lead to less health conditions and longer life span. If BMI greater than 25 weight watchers or dietary consult advised. Questions have been answered. Patient appears to understand instructio ns, but if you have any further questions call or respond to this email [employer] ip x 40yrs Pap hx wnlPap/hpv sent If wnl d/c pap/hpv screen per asccp after age 65yo unless otherwise indicatedD eclined std screenMamm o orderedCol on-UTD PCPDexa-or dered (will determine if needs medication holiday or not). Screening mammography 24 [id number] Z12.31 Postmenopa usal osteopenia [id number] M85.80 Dexa due 2020 Needs to consider D/C biphosphon ate instead of doing both SERM & biphosphon ate. Also Biphosphon ate has max of 5yrs use. Can discuss next year after bone scan evaluation . [id number] Gabriela Blanca , [facility] [address] [address] 06/16/2022 09:05:09 06/16/2022 09:55:53 Gynecologic examination [id number] Z01.419 Z11.51 Take Calcium with Vitamin D 12-1500mg daily. Do monthly self breast exams. It is advised to get annual flu shot in the fall and she could obtain at [facility] or [facility] care clinic. If you haven't received the Tdap vaccine in the last 10 years you should obtain one as well. Have mammogram yearly, bone density every 2-3 years and colonoscop y every 5-10 years depending on findings and history. Engage in daily exercise of low impact aerobic exercise 45-60 minutes 4-5 times weekly. Avoid tobacco and illicit drugs as well as using moderation with alcohol intake less than 1-2 8 oz beverages daily. This lifestyle behavior pattern will lead to less health conditions and longer life span. If BMI greater than 25 weight watchers or dietary consult advised. Questions have been answered. Patient appears to understand instructio ns, but if you have any further questions call or respond to this email [facility] ip x 40yrs Pap/hpv sent USPSTF recommends against screening for cervical cancer in women older than 65yo, those who've had a hysterecto my for non-cancer indication s, & who have had adequate prior screening & are not otherwise at high risk for cervical cancer. STD Screen declined Genetic Screen discussed Colon Screen UTD PCP Dexa Screen PCP due 2023 Routine Labs PCPMammo ordered Screening mammography 24 [id number] Z12.31 Postmenopa usal osteopenia [id number] M85.80 Will have PCP manage after this since doesn't need to come back yearly if paps are d/c.Consid er a break from this medication if has been on >5yrs.Dexa due 2023. History of hematuria 161 [id number] Z87.448 Will send urine for culture & Call with results since not prominent sx's [id number] HARPREET PAREKH, LUCIA Lugoff [address] [address] 02/26/2024 09:57:38 02/26/2024 10:41:32 Gynecologic examination [id number] Z01.419 Annual gynecologi rosanna exam performed. Patient will come back in a year unless there are new symptoms. Suggest Calcium with Vitamin D if not eating in diet. Patient advised to get annual flu shot. Recommend yearly physicals and perform monthly breast exams. Genetic testing is available for patients with family history of cancer. Engage in safe sexual practices, use condoms. Encouraged to have daily exercise. Avoid tobacco and illicit drugs, moderation of alcohol. If BMI greater than 25 dietary consult advised. If you have any questions please call or email. mammogram- UTD- pt to schedule annual mammogram next year colon cancer screening - UTD PCP DEXA scan- ordered Pap smear- USPSTF recommends against screening for cervical cancer in women older than 65yo, those who've had a hysterecto my for non-cancer indication s, & who have had adequate prior screening & are not otherwise at high risk for cervical cancer. laboratory evaluation - PCP STI testing - declined Screening mammography 24 600250 Z12.31 Screening for osteoporosis [id number] Z13.820 Health Concerns Section Related Observation LastModified by Organization Detai ls LastModified Time None Recorded Concern Status LastModified by Organization Details LastModified Time None Recorded Advance Directives Directive N: Payers Encounter Date Sequence Insurance Name Policy Number Policy Mcmillan Covered Member ID Mcmillan Member ID Guarantor Name 02/14/[address] [facility] [id number] Johnna Becerra [id number] Johnna Becerra 02/21/[address] [facility] [id number] Johnna Becerra [id number] Johnna Becerra 06/16/[address] [facility] [id number] Johnna Goldenro [id number] Johnna Becerra 02/26/[address] [facility] [id number] Johnna Becerra [id number] Johnna Becerra Notes Date Note Type Note Provider Name and Address Organization Details Recorded Time 02/14/2020 text/html Annual GYNReport ed bypatient.History: no gynecologic complaints Menstrual cycle:postmenopaus al Urinary symptoms:No hematuria; No incontinence Vulva:No genital lesion Vagina:Normal vaginal discharge Breast:No breast pain; No breast lump; No nipple discharge Current Contraception:Graham gamous relationship Sexual complaints:No sexual complaints; No pain during intercourse; Normal libido Menopausal Symptoms:No menopausal symptoms; Normal vaginal lubrication Psychological symptoms:No depression; No anxiety; No PMDD Preventive measures:Encourage self breast examination; Encourage regular exercise; Encourage no tobacco use; Encourage regular mammograms starting age 40; Followed with Q3 year pap smear and high risk HPV typing; Needs to schedule mammogram; Up to date on colonoscopy screening; Dexa 2019 Osteopenia Gabriela Blanca [facility] [address], [place], [address], [facility] 02/14/2020 11:17:58 02/21/2021 text/html Annual Community Engagement Leader Post-MenopausalRep orted bypatient.Menopaus al Symptoms:no menopausal symptoms; normal vaginal lubrication Vaginal Bleeding:history of menopause having occurred; no history of post menopausal bleeding Urinary Symptoms:no hematuria; no incontinence; no nocturia; no urinary frequency Vulva:no genital lesion; no vulvar atrophy Vagina:normal vaginal discharge; no vaginal atrophy Breast:no breast lump; no nipple discharge; no breast pain Sexual Complaints:no sexual complaints Psychological Symptoms:no depression; no anxiety Preventive Measures:encourage regular mammograms starting age 40; encourage self breast examination; encourage regular exercise; encourage no tobacco use; needs to schedule mammogram; history of recent colonoscopy; needs to schedule bone density [facility] [address], [place], [address], [facility] 02/21/2021 10:40:46 06/16/2022 text/html Annual Community Engagement Leader Post-MenopausalRep orted bypatient.Menopaus al Symptoms:no menopausal symptoms; normal vaginal lubrication Vaginal Bleeding:history of menopause having occurred; no history of post menopausal bleeding Urinary Symptoms:no hematuria; no incontinence; no nocturia; no urinary frequency Vulva:no genital lesion; no vulvar atrophy Vagina:normal vaginal discharge; no vaginal atrophy Breast:no breast lump; no nipple discharge; no breast pain Sexual Complaints:no sexual complaints Psychological Symptoms:no depression; no anxiety Preventive Measures:encourage regular mammograms starting age 40; encourage self breast examination; encourage regular exercise; encourage no tobacco use; needs to schedule mammogram; history of recent colonoscopy [facility] [address], [place], [address], [facility] 06/16/2022 09:50:22 02/26/2024 text/html Annual Community Engagement Leader Post-MenopausalRep orted bypatient.Menopaus al Symptoms:no menopausal symptoms; normal vaginal lubrication Vaginal Bleeding:history of menopause having occurred; no history of post menopausal bleeding Urinary Symptoms:no hematuria; no incontinence; no nocturia; no urinary frequency Vulva:no genital lesion; no vulvar atrophy Vagina:normal vaginal discharge; no vaginal atrophy Breast:no breast lump; no nipple discharge; no breast pain Sexual Complaints:no sexual complaints Psychological Symptoms:no depression; no anxiety Preventive Measures:encourage regular mammograms starting age 40; encourage self breast examination; encourage regular exercise; encourage no tobacco use Patient presents for annual well woman exam. Patient denies concerns today. HARPREET PAREKH NP [address], [place], [address], [facility] 02/26/2024 10:40:09 OBGyn Episode Ob Episode Information Episode Created Date Number of Fetuses Patient Bloodtype Patient rh Status Prepregnancy Weight lbs Domestic Partner Domestic Partner Phone Father Name Equipment Application Specialist Status 02/14/20 20 1 CLOSED Fetus Data First Name Last Name Admitted to NICU Weight (g) Sex Living Outcome Pediatric Complications Fetus ID Race Codes Race Delivery Type [id number] Repeat Ghulam Calculation Initial Ghulam Date Initial Exam Date Initial Exam Provider Initial Ultrasound Date Last Menstrual Period Date Ultra Sound Weeks Gestation 0 Eighteen To Twenty Week Ghulam Update Ultra Sound Date Fundal Height At Umbil Quickening Date Ultra Sound Latest Weeks Gestation Final Ghulam Confirmed By Final Ghulam Confirmed Date Final Ghulam Date Ultra Sound Latest Days Gestation 0 0 Menstrual History Last Menstrual Date Menses Monthly On Bcp Conception Prior Menses Frequency Hcg Plus Date Menarche Onset Age Delivery Information Delivery Date Delivery Type Labor Anesthesia Weeks Gestation Incision Type Labor Labor Length Hrs Delivered By Post Complications Tubal Sterilization Discharge Date Comments 5 Discharge Information Feeding Method Contraceptive Method Maternal HG B and HCT Levels Ob Episode Information Episode Created Date Number of Fetuses Patient Bloodtype Patient rh Status Prepregnancy Weight lbs Domestic Partner Domestic Partner Phone Father Name Equipment Application Specialist Status 02/14/20 20 1 CLOSED Fetus Data First Name Last Name Admitted to NICU Weight (g) Sex Living Outcome Pediatric Complications Fetus ID Race Codes Race Delivery Type [id number] Primary Ghulam Calculation Initial Ghulam Date Initial Exam Date Initial Exam Provider Initial Ultrasound Date Last Menstrual Period Date Ultra Sound Weeks Gestation 0 Eighteen To Twenty Week Ghulam Update Ultra Sound Date Fundal Height At Umbil Quickening Date Ultra Sound Latest Weeks Gestation Final Ghulam Confirmed By Final Ghulam Confirmed Date Final Ghulam Date Ultra Sound Latest Days Gestation 0 0 Menstrual History Last Menstrual Date Menses Monthly On Bcp Conception Prior Menses Frequency Hcg Plus Date Menarche Onset Age Delivery Information Delivery Date Delivery Type Labor Anesthesia Weeks Gestation Incision Type Labor Labor Length Hrs Delivered By Post Complications Tubal Sterilization Discharge Date Comments 2 Discharge Information Feeding Method Contraceptive Method Maternal HG B and HCT Levels
== END 2024-07-21 09:11 | disposition home or self-care (01) ==
PROVIDERS: PCP Family Medicine Adolescent Medicine
DX: M81.0 Age-related osteoporosis without current pathological fracture (principal); M85.89 Other specified disorders of bone density and structure, multiple sites
CPT/HCPCS: 77080

== ENCOUNTER 2025-01-17 10:56 | Outpatient (CLI) | payer OTHER, SELFPAY ==
--- NOTE | ~2025-01-17 | MM_ITS ---
EXAMINATION: MM screening cait BI w martha HISTORY: Screening TECHNIQUE: Craniocaudal and mediolateral oblique 3-D tomosynthesis images were obtained and synthetic 2-D images were generated. CAD analysis was submitted and interpreted. COMPARISON: Comparison to multiple prior studies sequentially, with oldest reviewed study dated , 01/24/2019 BREAST PARENCHYMAL COMPOSITION: There are scattered areas of fibroglandular density. FINDINGS: There is no evidence of suspicious mass, calcification, or architectural distortion to suggest malignancy in either breast. IMPRESSION: 1. No mammographic evidence of malignancy. 2. Recommend routine screening mammography in one year. BI-RADS Category 1: Negative Reviewed, dictated and finalized at location B.
== END 2025-01-17 10:57 | disposition home or self-care (01) ==
LOC: MICIMG 10:57
PROVIDERS: PCP Family Medicine Adolescent Medicine; Visit Provider Family Medicine Adolescent Medicine
DX: Z12.31 Encounter for screening mammogram for malignant neoplasm of breast (principal)
CPT/HCPCS: 77063; 77067